=== PATIENT | male | born 1965 | race Two or more races ===

== ENCOUNTER → 2016-11-14 | Outpatient (CLI) | payer OTHER ==
--- NOTE | ~2016-11-14 | US5 ---
[facility] A Service of [facility] RADIOLOGY TEXT RESULTS PATIENT: BEATRICE BRANDON LOCATION: [facility] : 65 UNIT #: [id number] AGE: [address]: IONA BULLARD SEX: M ORDER DR: [id number] [facility]. [place], [place] [address] [id number] O MR#: [id number] Acc #: [id number] NAME: BEATRICE BRANDON : 1965 SEX: M STUDY DATE/TIME: 11/14/2016 8:38 UNIT: [facility] ROOM: STUDY DESCRIPTION: US Abdominal Complete Attending Physician: Iona Bullard Aprn Referring Physician: Iona Bullard Aprn Ordering Physician: bEonie Not Listed Primary Care Physician: Kamari Mix M.D. MEDICAL IMAGING REPORT This report is preliminary unless electronic signature is present EXAM Abdominal ultrasound complete 11/14/2016. HISTORY Hepatitis B; observation for hepatocellular carcinoma. FINDINGS The liver is homogeneous in echotexture and demonstrates no cystic or solid mass lesions. The intra- and extrahepatic bile ducts are not dilated. The gallbladder contains multiple shadowing gallstones, but there is no evidence of gallbladder wall thickening or pericholecystic fluid. The common duct measures 3 mm. The pancreas is poorly visualized due to overlying bowel gas. The spleen measures 8.4 cm in greatest diameter. The visualized portions of the abdominal aorta and inferior vena cava are within normal limits. The right kidney is normal. There is a 7-mm cyst on the left kidney. IMPRESSION 1. No hepatic mass is seen. 2. Cholelithiasis. 3. Left renal cyst. Dictated by... Mohit Gatica M.D. THIS IS AN ELECTRONICALLY VERIFIED REPORT Mohit Gatica M.D. at 11/15/2016 8:11 AM MADHAVI/sharad TD: 11/14/2016 14:57 JOB #: [id number] [facility] A Service of [facility] RADIOLOGY TEXT RESULTS PATIENT: BEATRICE BRANDON LOCATION: [facility] #: [id number] : 65 UNIT #: [id number] AGE: [address]: IONA BULLARD SEX: M ORDER DR: MEDICAL IMAGING REPORT Page 1 of 1 COPY
== END | disposition home or self-care (01) ==
LOC: CGUS 08:21
DX: B19.10 Unspecified viral hepatitis B without hepatic coma (principal); K80.20 Calculus of gallbladder without cholecystitis without obstruction; N28.1 Cyst of kidney, acquired
CPT/HCPCS: 76700